=== PATIENT | female | born 1995 | race Caucasian/White ===

== ENCOUNTER 2020-10-29 15:55 | Emergency (ER) | payer OTHER ==
[2020-10-29 16:05] VITALS: BP 115/79; PULSE 76; TEMP 98.9; BMI 46.9
[2020-10-29] MEDS ORDERED: ACETAMINOPHEN 500 MG TABLET (FP) PO ONE (16:19)
[2020-10-29] MEDS ORDERED: LIDOCAINE 5% TOPICAL PATCH TP ONE (16:19)
[2020-10-29] MEDS ORDERED: KETOROLAC TROMETHAMINE 30 MG/1 ML VIAL IM ONE (16:19)
[2020-10-29] MEDS ORDERED: CYCLOBENZAPRINE HCL 5 MG TABLET PO ONE (16:24)
[2020-10-29] MEDS ORDERED: KETOROLAC TROMETHAMINE 30 MG/1 ML VIAL ONE (16:25)
[2020-10-29] MEDS ORDERED: LIDOCAINE 5% TOPICAL PATCH ONE (16:25)
[2020-10-29] MEDS ORDERED: ACETAMINOPHEN 325 MG TABLET (FP) ONE (16:25)
[2020-10-29] MEDS ORDERED: CYCLOBENZAPRINE HCL 10 MG TABLET (FP) ONE (16:26)
[2020-10-29] MEDS ORDERED: CYCLOBENZAPRINE HCL 5 MG TABLET PO SCH (16:30)
[2020-10-29] MEDS ORDERED: LIDOCAINE PATCH REMOVAL MC SCH (22:00)
== END 2020-10-29 16:53 | disposition home or self-care (01) ==
LOC: FER 15:55
PROC: 3E0233Z Introduction of Anti-inflammatory into Muscle, Percutaneous Approach (ICD-10-PCS; principal; 2020-10-29)
DX: M54.5 Low back pain (principal)
CPT/HCPCS: 99284-25